=== PATIENT | male | born 1945 | race Caucasian/White ===

== ENCOUNTER → 2019-03-03 | Outpatient (CLI) | payer MEDICARE, BC | LOC: LAB 10:20 | DX: R39.89 Other symptoms and signs involving the genitourinary system (principal) ==

== ENCOUNTER → 2019-03-06 | Outpatient (CLI) | payer MEDICARE, BC ==
[2019-03-06 11:52] LABS: ALBUMIN 4.1 g/dL (3.5-5.0); CALCIUM 9.7 mg/dL (8.4-10.2); POTASSIUM 4.3 mmol/L (3.6-5.0); TOTAL BILIRUBIN 0.4 mg/dL (0.2-1.3); TOTAL PROTEIN 7.6 g/dL (6.3-8.2)
[2019-03-06 12:15] LABS: HEMOGLOBIN 13.7 g/dL (13.5-18.0); MEAN CELL VOLUME 95 fl (78-100); MEAN CORPUSCULAR HEMOGLOBIN 30 pg (27-31); MEAN CORPUSCULAR HGB CONC 32 g/dL (33-37); PLATELET COUNT 333 K/mm3 (130-400); RED BLOOD COUNT 4.55 M/mm3 (4.20-5.60); WHITE BLOOD COUNT 7.8 K/mm3 (4.8-10.8)
[2019-03-06 12:49] LABS: LYMPHOCYTE 13 % (20-51); MONOCYTE 13 % (3-10); NEUTROPHILS 71 % (42-75)
[2019-03-06 13:11] LABS: ERYTHROCYTE SEDIMENTATION RATE 51 mm/hr (0-20)
[2019-03-06 23:38] LABS: TESTOSTERONE 132 ng/dL (221-716)
== END ==
LOC: LAB 11:08
PROVIDERS: Internal Medicine
DX: Z12.5 Encounter for screening for malignant neoplasm of prostate (principal); Z12.11 Encounter for screening for malignant neoplasm of colon; R20.2 Paresthesia of skin; E78.5 Hyperlipidemia, unspecified; E74.39 Other disorders of intestinal carbohydrate absorption; N52.9 Male erectile dysfunction, unspecified

== ENCOUNTER → 2019-03-24 | Outpatient (CLI) | payer MEDICARE, BC | LOC: LAB 19:00 | DX: Z12.11 Encounter for screening for malignant neoplasm of colon (principal); R20.2 Paresthesia of skin ==

== ENCOUNTER 2019-03-29 16:15 | Emergency (ER) | payer MEDICARE, BC ==
[~2019-03-29] VITALS: Ht 182.9 cm; Wt 106.4 kg
[2019-03-29] MEDS ORDERED: LOPRESSOR 550 MG/TAB PO (16:47)
[2019-03-29] MEDS ORDERED: LISINOPRIL10 MG PO (16:47)
[2019-03-29] MEDS ORDERED: ATORVASTATIN CA40 MG PO (16:48)
[2019-03-29] MEDS ORDERED: BRILINTA90 MG PO (16:48)
[2019-03-29] MEDS ORDERED: BACTRIM DS 8001 TAB PO (16:48)
[2019-03-29] MEDS ORDERED: ADULT LOW DOSE81 MG PO (16:49)
[2019-03-29 17:01] LABS: HEMOGLOBIN 12.1 g/dL (13.5-18.0); MEAN CELL VOLUME 96 fl (78-100); MEAN CORPUSCULAR HEMOGLOBIN 31 pg (27-31); MEAN CORPUSCULAR HGB CONC 32 g/dL (33-37); MEAN PLATELET VOLUME 8.9 fl (7.4-10.4); PLATELET COUNT 238 K/mm3 (130-400); RED BLOOD COUNT 3.96 M/mm3 (4.20-5.60); RED CELL DISTRIBUTION WIDTH 13.7 % (11.5-14.5); WHITE BLOOD COUNT 8.8 K/mm3 (4.8-10.8)
[2019-03-29 17:08] LABS: CALCIUM 9.1 mg/dL (8.4-10.2); POTASSIUM 4.3 mmol/L (3.6-5.0)
[2019-03-29 17:15] LABS: LYMPHOCYTE 5 % (20-51); MONOCYTE 19 % (3-10); NEUTROPHILS 73 % (42-75)
[2019-03-29 17:50] VITALS: BP 132/76
== END 2019-03-29 17:50 | disposition home or self-care (01) ==
LOC: ED 16:15
PROVIDERS: Family Medicine
DX: I97.630 Postprocedural hematoma of a circulatory system organ or structure following a cardiac catheterization (principal); I25.10 Atherosclerotic heart disease of native coronary artery without angina pectoris; E78.5 Hyperlipidemia, unspecified; Z95.5 Presence of coronary angioplasty implant and graft

== ENCOUNTER → 2019-07-29 | Outpatient (CLI) | payer MEDICARE, BC ==
[~2019-07-29] VITALS: Ht 182.9 cm; Wt 106.4 kg
[~2019-07-29] MED LIST: ADULT LOW DOSE81 MG PO; ATORVASTATIN CA40 MG PO; BACTRIM DS 8001 TAB PO; BRILINTA90 MG PO; LISINOPRIL10 MG PO; LOPRESSOR 550 MG/TAB PO; NITROGLYCERIN0.4 M1 SL
[2019-07-29 19:00] VITALS: BP 114/78
[2019-07-29 19:22] LABS: HEMATOCRIT 45.9 % (42.0-52.0); HEMOGLOBIN 15.2 g/dL (13.5-18.0); MEAN PLATELET VOLUME 8.7 fl (7.4-10.4); RED BLOOD COUNT 4.88 M/mm3 (4.20-5.60); RED CELL DISTRIBUTION WIDTH 13.3 % (11.5-14.5)
[2019-07-29 19:30] LABS: ALBUMIN 4.5 g/dL (3.4-4.8); POTASSIUM 4.6 mmol/L (3.5-5.1); SODIUM 141 mmol/L (136-145)
[2019-07-29 19:31] LABS: CALCIUM 10.2 mg/dL (8.3-10.5)
[2019-07-29 19:33] LABS: GLUCOSE 115 mg/dL (75-110); TOTAL PROTEIN 7.8 g/dL (6.2-8.1)
[2019-07-29 19:34] LABS: CARBON DIOXIDE 23 mmol/L (23-31); TOTAL BILIRUBIN 0.6 mg/dL (0.2-1.2)
[2019-07-29 19:38] LABS: AST-SGOT 18 U/L (5-34)
[2019-07-29 19:39] LABS: ALT/SGPT 25 U/L (0-55)
[2019-07-29 19:49] LABS: TROPONIN-I < 0.03 ng/mL (<0.030)
== END ==
LOC: AMSURD 18:39
PROVIDERS: Nurse Practitioner
DX: R05 Cough (principal); R53.83 Other fatigue

== ENCOUNTER → 2021-01-25 | Outpatient (CLI) | payer MEDICARE, BC ==
[2020-10-24 10:04] VITALS: BP 103/62
[~2021-01-25] MED LIST changes: +CLOPIDOGREL PO; +DEXAMETHASONE4 MG/M1 PO; +GUAIFEN-CODEINE5 ML PO; +PROAIR HFA0.09 MG/AC IH; +SPACE CHAMBER1 EACH MC; +VITAMIN C500 MG PO; +VITAMIN D325 MC1 PO; +ZINC SO4 PO; +ZITHROMAX500 M2 PO
[2021-01-25 09:22] LABS: ALBUMIN 4.1 g/dL (3.4-4.8); POTASSIUM 4.4 mmol/L (3.5-5.1)
[2021-01-25 09:23] LABS: CALCIUM 9.4 mg/dL (8.3-10.5); EOS # 0.1 (0.04-0.40); EOS % 1.5 % (0.0-4.0); HEMATOCRIT 44.8 % (42.0-52.0); HEMOGLOBIN 14.7 g/dL (13.5-18.0); LYMPH# 1.1 (1.50-4.00); MEAN CELL VOLUME 95 fl (78-100); MEAN CORPUSCULAR HEMOGLOBIN 31 pg (27-31); MEAN CORPUSCULAR HGB CONC 33 g/dL (33-37); MEAN PLATELET VOLUME 8.5 fl (7.4-10.4); MONO # 0.6 (0.20-0.80); NEU # 3.5 (1.40-6.50); PLATELET COUNT 226 K/mm3 (130-400); RED CELL DISTRIBUTION WIDTH 12.3 % (11.5-14.5); WHITE BLOOD COUNT 5.3 K/mm3 (4.8-10.8)
[2021-01-25 09:24] LABS: TOTAL PROTEIN 6.9 g/dL (6.2-8.1)
[2021-01-25 09:26] LABS: TOTAL BILIRUBIN 0.5 mg/dL (0.2-1.2)
[2021-01-25 09:56] LABS: URINE COLOR YELLOW
[2021-01-25 09:57] LABS: URINE APPEARANCE CLEAR; URINE BILIRUBIN NEGATIVE (NEGATIVE); URINE BLOOD NEGATIVE (NEGATIVE); URINE GLUCOSE NEGATIVE (NEGATIVE); URINE KETONE NEGATIVE (NEGATIVE); URINE LEUKOCYTE ESTERASE NEGATIVE (NEGATIVE); URINE NITRATE NEGATIVE (NEGATIVE); URINE PROTEIN(semi-quant) NEGATIVE (NEGATIVE); URINE UROBILINOGEN NORMAL (NORMAL); URINE WBC 0-1 /hpf (0-3)
[2021-01-25 10:49] LABS: ERYTHROCYTE SEDIMENTATION RATE 8 mm/hr (0-20)
[2021-01-25 22:25] LABS: FOLLICLE STIMULATING HORMONE 3.8 mIU/mL (1.0-12.0); LUTENIZING HORMONE 4.9 mIU/mL (0.6-12.1); PROLACTIN AMS 10.8 ng/mL (3.5-19.4)
== END ==
LOC: LAB 08:50
PROVIDERS: Internal Medicine
DX: E78.2 Mixed hyperlipidemia (principal); R73.03 Prediabetes; F52.21 Male erectile disorder; K90.9 Intestinal malabsorption, unspecified; R97.8 Other abnormal tumor markers

== ENCOUNTER → 2021-07-01 | Outpatient (CLI) | payer MEDICARE, BC ==
[2021-07-01 09:28] LABS: TOTAL PROTEIN 6.9 g/dL (6.2-8.1)
[2021-07-01 09:30] LABS: TOTAL BILIRUBIN 0.6 mg/dL (0.2-1.2)
[2021-07-01 09:33] LABS: DIRECT BILIRUBIN 0.2 mg/dL (0.0-0.5)
== END ==
LOC: LAB 09:05
DX: E78.2 Mixed hyperlipidemia (principal); I25.10 Atherosclerotic heart disease of native coronary artery without angina pectoris; Z79.899 Other long term (current) drug therapy

== ENCOUNTER → 2022-03-03 | Outpatient (CLI) | payer MEDICARE, BC ==
[2022-03-03 10:39] LABS: ALBUMIN 4.2 g/dL (3.4-4.8); POTASSIUM 4.1 mmol/L (3.5-5.1)
[2022-03-03 10:40] LABS: CALCIUM 9.8 mg/dL (8.3-10.5)
[2022-03-03 10:42] LABS: TOTAL PROTEIN 7.1 g/dL (6.2-8.1)
[2022-03-03 10:43] LABS: TOTAL BILIRUBIN 0.5 mg/dL (0.2-1.2)
[2022-03-03 10:49] LABS: BASO # 0.01 K/mm3 (0.02-0.10); EOS % 1.7 % (0.0-4.0); HEMOGLOBIN 15.5 g/dL (13.5-18.0); LYMPH# 1.19 K/mm3 (1.50-4.00); MEAN CELL VOLUME 95 fl (78-100); MEAN CORPUSCULAR HEMOGLOBIN 31 pg (27-31); MEAN CORPUSCULAR HGB CONC 33 g/dL (33-37); MEAN PLATELET VOLUME 9.1 fl (7.4-10.4); MONO # 0.63 K/mm3 (0.20-0.80); NEU # 3.97 K/mm3 (1.40-6.50); PLATELET COUNT 258 K/mm3 (130-400); RED BLOOD COUNT 4.95 M/mm3 (4.20-5.60); RED CELL DISTRIBUTION WIDTH 12.3 % (11.5-14.5); WHITE BLOOD COUNT 5.9 K/mm3 (4.8-10.8)
[2022-03-03 11:58] LABS: ERYTHROCYTE SEDIMENTATION RATE 6 mm/hr (0-20)
[2022-03-03 12:19] LABS: URINE APPEARANCE CLEAR; URINE BILIRUBIN NEGATIVE (NEGATIVE); URINE BLOOD NEGATIVE (NEGATIVE); URINE COLOR YELLOW; URINE GLUCOSE NEGATIVE (NEGATIVE); URINE KETONE NEGATIVE (NEGATIVE); URINE LEUKOCYTE ESTERASE NEGATIVE (NEGATIVE); URINE MUCUS PRESENT (NOT PRESENT); URINE NITRATE NEGATIVE (NEGATIVE); URINE PROTEIN(semi-quant) 1+ (NEGATIVE); URINE UROBILINOGEN NORMAL (NORMAL); URINE WBC 0-1 /hpf (0-3)
== END ==
LOC: RAD 08:50
PROVIDERS: Internal Medicine
DX: M46.1 Sacroiliitis, not elsewhere classified (principal)

== ENCOUNTER → 2023-01-25 | Outpatient (CLI) | payer MEDICARE, BC | LOC: LAB 17:45 | DX: U07.1 COVID-19 (principal) ==

== ENCOUNTER → 2024-04-10 | Outpatient (CLI) | payer MEDICARE, BC ==
[2024-05-27 12:53] LABS: ALBUMIN 4.3 g/dL (3.4-4.8); DIRECT BILIRUBIN 0.3 mg/dL (0.0-0.5); TOTAL BILIRUBIN 0.6 mg/dL (0.2-1.2); TOTAL PROTEIN 6.9 g/dL (6.2-8.1)
== END ==
LOC: LAB 08:00
DX: E78.2 Mixed hyperlipidemia (principal)

== ENCOUNTER → 2024-07-03 | Outpatient (CLI) | payer MEDICARE, BC ==
[2024-07-03 07:47] LABS: URINE WBC 0 /hpf (0-3)
[2024-07-03 07:59] LABS: BASO # 0.01 K/mm3 (0.02-0.10); EOS # 0.21 K/mm3 (0.04-0.40); EOS % 3.8 % (0.0-4.0); HEMATOCRIT 44.5 % (42.0-52.0); HEMOGLOBIN 14.6 g/dL (13.5-18.0); MEAN CELL VOLUME 97 fl (78-100); MEAN CORPUSCULAR HEMOGLOBIN 32 pg (27-31); MEAN CORPUSCULAR HGB CONC 33 g/dL (33-37); MEAN PLATELET VOLUME 8.6 fl (7.4-10.4); MONO # 0.65 K/mm3 (0.20-0.80); NEU # 3.56 K/mm3 (1.40-6.50); PLATELET COUNT 200 K/mm3 (130-400); RED BLOOD COUNT 4.58 M/mm3 (4.20-5.60); RED CELL DISTRIBUTION WIDTH 12.2 % (11.5-14.5); WHITE BLOOD COUNT 5.5 K/mm3 (4.8-10.8)
[2024-07-03 08:11] LABS: MAGNESIUM 2.07 mg/dL (1.60-2.60)
[2024-07-03 08:31] LABS: URINE APPEARANCE CLEAR (CLEAR); URINE BILIRUBIN NEGATIVE (NEGATIVE); URINE BLOOD NEGATIVE (NEGATIVE); URINE COLOR YELLOW (YELLOW); URINE GLUCOSE NEGATIVE (NEGATIVE); URINE KETONE NEGATIVE (NEGATIVE); URINE LEUKOCYTE ESTERASE NEGATIVE (NEGATIVE); URINE NITRATE NEGATIVE (NEGATIVE); URINE PROTEIN(semi-quant) NEGATIVE (NEGATIVE)
[2024-07-03 22:43] LABS: TESTOSTERONE 369 ng/dL (221-716)
== END ==
LOC: LAB 07:36
PROVIDERS: Internal Medicine
DX: F52.21 Male erectile disorder (principal); I25.10 Atherosclerotic heart disease of native coronary artery without angina pectoris; R73.03 Prediabetes; E78.2 Mixed hyperlipidemia; R97.8 Other abnormal tumor markers; K90.9 Intestinal malabsorption, unspecified

== ENCOUNTER → 2025-02-27 | Outpatient (CLI) | payer MEDICARE, BC ==
[2025-02-27 14:22] LABS: BASO # 0.01 K/mm3 (0.02-0.10); EOS # 0.12 K/mm3 (0.04-0.40); HEMATOCRIT 46.8 % (42.0-52.0); HEMOGLOBIN 15.3 g/dL (13.5-18.0); LYMPH# 1.14 K/mm3 (1.50-4.00); MEAN CELL VOLUME 96 fl (78-100); MEAN CORPUSCULAR HEMOGLOBIN 32 pg (27-31); MEAN CORPUSCULAR HGB CONC 33 g/dL (33-37); MEAN PLATELET VOLUME 8.5 fl (7.4-10.4); MONO # 0.68 K/mm3 (0.20-0.80); NEU # 4.06 K/mm3 (1.40-6.50); PLATELET COUNT 217 K/mm3 (130-400); RED BLOOD COUNT 4.86 M/mm3 (4.20-5.60); RED CELL DISTRIBUTION WIDTH 12.4 % (11.5-14.5)
[2025-02-27 17:40] LABS: ALBUMIN 4.4 g/dL (3.4-4.8)
[2025-02-27 17:41] LABS: CALCIUM 9.5 mg/dL (8.3-10.5)
[2025-02-27 17:43] LABS: TOTAL PROTEIN 7.5 g/dL (6.2-8.1)
[2025-02-27 17:45] LABS: TOTAL BILIRUBIN 0.8 mg/dL (0.2-1.2)
[2025-02-27 17:49] LABS: MAGNESIUM 2.08 mg/dL (1.60-2.60)
== END ==
LOC: LAB 13:54
PROVIDERS: Internal Medicine
DX: I25.10 Atherosclerotic heart disease of native coronary artery without angina pectoris (principal); E78.2 Mixed hyperlipidemia; R73.03 Prediabetes